=== PATIENT | female | born 1980 ===

== ENCOUNTER → 2018-08-27 23:53 | Outpatient (REF) | payer BC, SELFPAY ==
[2018-08-28 00:14] LABS: WBC Urine None Seen (0-5/HPF)
[2018-08-28 02:38] LABS: Appearance Urine UA TURBID; Bilirubin Urine UA NEGATIVE (NEGATIVE); Color Urine UA YELLOW; Glucose Urine UA NEGATIVE (Negative); Ketones Urine UA NEGATIVE (NEGATIVE); Leukocyte Esterase Urine UA NEGATIVE (NEGATIVE); Nitrite Urine UA NEGATIVE (Negative); Occult Blood Urine UA 2+ (Negative); Protein Urine UA NEGATIVE (Negative); Specific Gravity Urine UA 1.025 (1.000-1.035); Urobilinogen Urine UA 0.2 E.U./dL (0.2); pH Urine UA 5.5 (4.5-8.0)
[2018-08-28 02:49] LABS: Add Manual Diff / Slide Review NO; Basophils Absolute Auto 100 /uL (0-100); Basophils Percent Auto 0.9 % (0-2); Eosinophils Absolute Auto 400 /uL (0-450); Eosinophils Percent Auto 4.2 % (2-4); Hematocrit 44.6 % (36-46); Lymphocytes Absolute Auto 2500 /uL (1100-4500); Lymphocytes Percent Auto 29.5 % (25-40); Mean Corpuscular HGB Conc 33.7 % (30-36); Mean Corpuscular Hemoglobin 29.8 PG (26-34); Mean Corpuscular Volume 88.4 fL (80-100); Monocytes Absolute Auto 500 /uL (0-900); Monocytes Percent Auto 6.4 % (3-14); Neutrophils Absolute Auto 5100 /uL (1500-7000); Platelet Count 338 X10^3/uL (150-400); Red Blood Cell Count 5.04 X10^6/uL (4.0-5.2); White Blood Cell Count 8.6 X10^3/uL (4.5-11.0)
[2018-08-28 02:51] LABS: Amorphous Sediment Urine 3+; Bacteria Urine Occasional (0-1); Culture Indicated Urine Cult Not Indicated; RBC Urine 0-1/HPF (0-5/HPF); Squamous Epithelial Cell Urine 1-5 /HPF (0-5/HPF)
[2018-08-28 03:01] LABS: Alanine Aminotransferase 46 IU/L (9-52); Albumin 4.1 g/dL (3.5-5.0); Albumin Globulin Ratio 1.5 (1.0-2.8); Alkaline Phosphatase 93 U/L (38-126); Aspartate Aminotransferase 28 IU/L (14-36); Bilirubin Total 0.4 mg/dL (0.2-1.3); Blood Urea Nitrogen 15 mg/dL (7-17); Carbon Dioxide 25 mmol/L (22-32); Chloride 104 mmol/L (98-107); Cholesterol 203 mg/dL (140-199); Estimated Glomerular Filt Rate > 60.0 mL/min (>60); Gamma Glutamyl Transpeptidase 21 U/L (12-43); Globulin 2.8 g/dL (1.7-4.1); Glucose 101 mg/dL (70-100); HDL Cholesterol 25 mg/dL (40-60); HEMOLYSIS < 15 (0-50); LDL Cholesterol Calculated 141 mg/dL (<100); Potassium 4.4 mmol/L (3.4-5.1); Sodium 138 mmol/L (137-145); Total Protein 6.9 g/dL (6.3-8.2); Triglycerides 186 mg/dL (35-150)
[2018-08-28 03:06] LABS: High Sensitivity CRP - Cardiac 1.7 mg/L (1.0-3.0)
[2018-08-28 03:08] LABS: Vitamin D 25 Hydroxy (D3) 22.7 ng/mL (30.0-100.0)
[2018-08-28 03:21] LABS: Hemoglobin A1C% w Est Avg Glu 5.1 % (4.0-6.0)
[2018-08-28 03:24] LABS: Free T4, Direct Thyroxine 0.86 ng/dL (0.78-2.19)
[2018-08-28 03:37] LABS: Ferritin 46.1 ng/mL (6.27-137); Thyroid Stimulating Hormone 3.05 uIU/mL (0.47-4.68)
[2018-08-29 10:19] LABS: Rheumatoid Factor < 8.6 IU/mL (<12.0)
[2018-08-29 10:49] LABS: Erythrocyte Sedimentation Rate 3 MM/HR (0-20)
[2018-08-31 14:06] LABS: Insulin Level Total 18.4 uIU/mL (2.0-19.6)
[2018-08-31 15:10] LABS: Anti Thyroglobulin Antibody 1 IU/mL (< 2); Thyroid Peroxidase Antibodies 11 IU/mL (< 9)
[2018-08-31 16:45] LABS: HLA B27 POSITIVE (Negative)
[2018-09-02 15:04] LABS: Thyroid Stimulating Immunoglob 98 % baseline (< 140)
[2018-09-02 22:45] LABS: (tTG) Ab, IgA 5 U/mL
[2018-09-03 20:45] LABS: ANA Screen, IFA NEGATIVE
[2018-09-10 15:24] LABS: Anti Gliadin IgG Ab 9 U (<20); Gliadin Gluten IgA 6 U (<20)
== END ==
LOC: LAB 23:53
PROVIDERS: Visit Provider Naturopath
DX: R53.83 Other fatigue (principal); M54.5 Low back pain; E55.9 Vitamin D deficiency, unspecified; E05.00 Thyrotoxicosis with diffuse goiter without thyrotoxic crisis or storm; R51 Headache; M12.80 Other specific arthropathies, not elsewhere classified, unspecified site
CPT/HCPCS: 36415; 80053; 80061; 81001; 82306; 82728; 82977; 83036; 83516; 83520; 83525; 84439; 84443; 84445; 84481; 85025; 85651; 86038; 86140; 86255; 86376; 86430; 86800; 86812